=== PATIENT | female | born 1960 | race Caucasian/White ===

== ENCOUNTER 2020-10-21 21:32 | Inpatient (IN) | payer MEDICARE, OTHER ==
[~2020-10-21] VITALS: Ht 177.8 cm; Wt 117.9 kg
--- NOTE | 2020-10-21 21:50 | NUR ---
AERIAL ERECTORRESEARCH SCIENTIST NOTES RECEIVED REPORT FROM CAYLA RN AND MAURA RN. MAURA STATED SHE ADMINISTERED LOVENOX AND ZYPREXA PATIENT ADMITTED FROM [facility] TO TELE 3W 329-1 VIA [facility] WITH 2 EMT. DX: AMS SECONDARY TO ACUTE ENCEPHALOPATHY. PATIENT A/OX1-2; NONVERBAL. ON ROOM AIR AND TOLERATING WELL. HAS BRUISED ON BUE, AND REDNESS ON ABDOMINAL FOLDS. ON NPO DIET FOR ASPIRATION PRECAUTIONS / FAILED SWALLOW EVAL. MIDLINE #20 ON GATO WAS PULLED OUT BY PATIENT. IV #20 ON L HAND PATENT AND INTACT. ENDARTERECTOMY TO BE DONE BY DR. BRADY. SAFETY MEASURES IN PLACE; BED IS LOWEST LOCKED POSITION, SIDE RAILS UP X2, CALL LIGHT WITHIN REACH, BED ALARM ON. VS: BP 119/71, P 97, RR 20 T 97.9F, O2SAT 97% ON ROOM AIR. WILL CONTINUE TO MONITOR.
--- NOTE | 2020-10-21 22:30 | NUR ---
AUTO BODY DETAILER NOTES NOTIFIED DR. DE LA ROSA FOR ADMISSION. ORDERED FOR MIDLINE INSERTION; ORDERS CARRIED OUT.
[2020-10-21] MEDS ORDERED: Z GUARD REMEDY 2 OZ OINT TP PRN (23:30)
[2020-10-21] MEDS ORDERED: ONDANSETRON HCL/PF 4 MG/2 ML VIAL IVP PRN (23:30)
[2020-10-21] MEDS ORDERED: HYDROCODONE/APAP 5/325MG TABLET PO PRN (23:30)
[2020-10-21] MEDS ORDERED: ZOLPIDEM TARTRATE 5 MG TABLET PO PRN (23:30)
[2020-10-21] MEDS ORDERED: MAG HYDROX/AL HYDROX/SIMETH 30 ML UDC PO PRN (23:30)
[2020-10-21] MEDS ORDERED: MAGNESIUM HYDROXIDE 30 ML UDC PO PRN (23:30)
[2020-10-21] MEDS ORDERED: ACETAMINOPHEN 325 MG TABLET PO PRN (23:30)
[2020-10-22] VITALS (10 sets, daily range): BP systolic 103–146; BP diastolic 66–93
--- NOTE | 2020-10-22 01:50 | NUR ---
BELL HOLE DIGGER NOTES PATIENT HAS HX OF DM AND IS NPO. DR. DE LA ROSA ORDERED FOR INSULIN MILD SLIDING SCALE. ORDERS CARRIED OUT.
[2020-10-22] MEDS ORDERED: DEXTROSE 50%-WATER 50 ML DISP.SYRIN IV PRN (02:00)
[2020-10-22] MEDS: BLOOD SUGAR DIAGNOSTIC 1 EACH STRIP IN SCH ×3 (05:53→18:59)
[2020-10-22] MEDS: INSULIN REGULAR, HUMAN 100 UNIT/ML 3 ML VIAL SQ PRN (06:19)
--- NOTE | 2020-10-22 07:30 | NUR ---
PATIENT RECEIVED RESTING COMFORTABLY IN BED. NO S/S OR C/O PAIN OR DISTRESS NOTED. SIDE RAILS UP X2, CALL LIGHT LEFT WITHIN REACH,. WILL CONTINUE PLAN OF CARE.
--- NOTE | 2020-10-22 08:05 | NUR ---
DEVELOPMENTAL SPECIALIST CLOSING NOTES PATIENT A/OX1; NONVERBAL. ON ROOM AIR AND TOLERATING WELL. HAS BRUISED ON BUE, AND REDNESS ON ABDOMINAL FOLDS; PICTURES TAKED AND IN CHARTS. EXTERNAL TELE READS SR AND HR AT 80'S. MAINTAINED ON NPO DIET FOR ASPIRATION PRECAUTIONS / FAILED SWALLOW EVAL. IV #20 ON L HAND PATENT AND INTACT. ALL BELONGINGS ACCOUNTED FOR AND FORMS WERE SIGNED BY PATIENT. SAFETY MEASURES IN PLACE; BED IS LOWEST LOCKED POSITION, SIDE RAILS UP X2, CALL LIGHT WITHIN REACH, BED ALARM ON. ENDORSED TIM TO ONCOMING NURSE.
[2020-10-22 08:09] LABS: BASOPHILS % (AUTO) 0.3 % (0.0-2.0); EOSINOPHILS % (AUTO) 2.3 % (0.0-6.0); HEMATOCRIT 41 % (33-45); HEMOGLOBIN 13.7 g/dL (11.5-14.8); LYMPHOCYTES % (AUTO) 26.8 % (20.0-44.0); MEAN CORPUSCULAR HGB CONC 33 g/dl (31.0-36.0); MEAN CORPUSCULAR VOLUME 84 fL (82-100); MONOCYTES % (AUTO) 9.3 % (2.0-12.0); NEUTROPHILS % (AUTO) 61.3 % (43.0-81.0); PLATELET COUNT (AUTO) 190 /CMM (150-450); RED BLOOD CELL COUNT(AUTO) 4.92 MIL/uL (4.0-5.2); WHITE BLOOD COUNT (AUTO) 7.4 K/uL (4.3-11.0)
[2020-10-22 08:10] LABS: MONOCYTES # (AUTO) 0.7 /CMM (0.1-1.30); NEUTROPHILS # (AUTO) 4.5 /CMM (1.8-8.9)
[2020-10-22] MEDS ORDERED: ENOX40DI SQ (08:12)
[2020-10-22] MEDS ORDERED: ASPI300S RC (08:12)
[2020-10-22] MEDS ORDERED: INSU100V3 SQ (08:12)
[2020-10-22] MEDS ORDERED: BLOO-668 IN (08:12)
[2020-10-22] MEDS ORDERED: RING500I4 IV (08:12)
[2020-10-22] MEDS ORDERED: ACET-868 PO (08:12)
[2020-10-22] MEDS ORDERED: ATOR40TA PO (08:12)
[2020-10-22] MEDS ORDERED: OLAN10VI IM (08:12)
[2020-10-22 09:53] LABS: CALCIUM, SERUM 8.6 mg/dL (8.5-10.1); CREATININE 0.7 mg/dL (0.6-1.3); MAGNESIUM 1.3 mg/dL (1.8-2.4); PHOSPHORUS 2.7 mg/dL (2.5-4.9)
[2020-10-22] MEDS ORDERED: OLANZAPINE 10 MG VIAL IM SCH (11:00)
[2020-10-22] MEDS ORDERED: ACETAMINOPHEN 325 MG TABLET PO PRN (11:00)
[2020-10-22] MEDS ORDERED: BLOOD SUGAR DIAGNOSTIC 1 EACH STRIP IN SCH (12:00)
--- NOTE | 2020-10-22 12:00 | NUR ---
MED HELD INSULIN RE NPO STATUS
[2020-10-22] MEDS ORDERED: GENTAMICIN 80 MG/2 ML VIAL ONE (12:22)
[2020-10-22] MEDS ORDERED: LIDOCAINE 1% INJ 50 ML MDV IJ ONE (12:23)
[2020-10-22] MEDS ORDERED: THROMBIN (BOVINE) 5,000 UNITS VIAL TP ONE (12:23)
[2020-10-22] MEDS ORDERED: HEPARIN SODIUM, PORCINE 5000 UNITS/1 ML VIAL ONE ×2 (12:23→12:46)
[2020-10-22] MEDS ORDERED: BUPIVACAINE 0.5 % PF 150 MG/30 ML VIAL ONE (12:23)
[2020-10-22] MEDS ORDERED: GELATIN SPONGE,ABSORBABLE 1 EA SPONGE TP ONE (12:25)
[2020-10-22] MEDS ORDERED: HEPARIN SODIUM, PORCINE 1,000 UNIT/ML VIAL ONE (12:25)
[2020-10-22] MEDS: Magnesium 1GM/D5W 100ML PREMIX 100 ML IV SCH ×5 (12:44→22:35)
[2020-10-22] MEDS ORDERED: protAMINE SULFATE 10 MG/ML VIAL IV ONE (12:44)
[2020-10-22] MEDS ORDERED: ZOLPIDEM TARTRATE 5 MG TABLET PO PRN (13:00)
[2020-10-22] MEDS ORDERED: MIDAZOLAM HCL 2 MG/2ML VIAL ONE (13:02)
[2020-10-22] MEDS ORDERED: FENTANYL PF 250MCG/5ML AMPUL ONE (13:02)
[2020-10-22] MEDS ORDERED: ROCURONIUM BROMIDE 50 MG/5 ML ONE (13:03)
[2020-10-22] MEDS ORDERED: FAMOTIDINE/PF INJ 20 MG/2 ML VIAL IV ONE (13:03)
--- NOTE | 2020-10-22 13:30 | NUR ---
PT TRANSFERRED TO SURGERY
[2020-10-22] MEDS ORDERED: CLINDAMYCIN 900 MG/6 ML VIAL ONE (14:12)
[2020-10-22] MEDS ORDERED: ASPIRIN 325 MG TABLET PO ONE (15:00)
[2020-10-22] MEDS ORDERED: CELLULOSE,OXIDIZED 1 EA PACK MC ONE (16:47)
[2020-10-22] MEDS ORDERED: CELLULOSE,OXIDIZED 1 EACH EACH MC ONE (16:48)
--- NOTE | 2020-10-22 17:00 | NUR ---
REPORT CALLED TO CINTIA ARROYO
[2020-10-22] MEDS ORDERED: CLONIDINE HCL 0.1 MG TABLET PO PRN (19:00)
[2020-10-22] MEDS ORDERED: NICARDIPINE IN NACL, ISO-OSM 200 ML IV PRN (19:00)
--- NOTE | 2020-10-22 19:00 | NUR ---
RN INITIAL NOTES RECEIVED PT FROM OR, SP RIGHT CAROTID ENDARTERECTOMY. NO SIGNS OF BLEEDING ON RIGHT NECK NOTED. IE PACK IN PLACE. PT A/OX2, FARSI SPEAKING. ON 0S VIA NC AT 2LPM. GATO MIDLINE IN PLACE. PIERRE IN PLACE. ORDERS FROM OR NOTED AND CARRIED OUT. MALINI DO NEUROCHECK Q4. WILL CLOSELY MONITOR
[2020-10-22] MEDS: IV 1/2NS 1000 ML 1,000 ML IV PRN (19:22)
[2020-10-22] MEDS: POTASSIUM CL. PREMIX PERIPHER. 50 ML IV SCH ×4 (19:23→22:35)
[2020-10-22 20:50] LABS: BASOPHILS % (AUTO) 0.1 % (0.0-2.0); HEMATOCRIT 43 % (33-45); HEMOGLOBIN 13.9 g/dL (11.5-14.8); LYMPHOCYTES # (AUTO) 0.5 /CMM (0.8-4.8); LYMPHOCYTES % (AUTO) 5.8 % (20.0-44.0); MEAN CORPUSCULAR HGB CONC 33 g/dl (31.0-36.0); MEAN CORPUSCULAR VOLUME 84 fL (82-100); MONOCYTES # (AUTO) 0.2 /CMM (0.1-1.30); MONOCYTES % (AUTO) 1.9 % (2.0-12.0); NEUTROPHILS # (AUTO) 8.1 /CMM (1.8-8.9); NEUTROPHILS % (AUTO) 92.2 % (43.0-81.0); PLATELET COUNT (AUTO) 189 /CMM (150-450); RED BLOOD CELL COUNT(AUTO) 5.04 MIL/uL (4.0-5.2); WHITE BLOOD COUNT (AUTO) 8.8 K/uL (4.3-11.0)
[2020-10-22 20:55] LABS: CALCIUM, SERUM 8.1 mg/dL (8.5-10.1); CREATININE 0.7 mg/dL (0.6-1.3); MAGNESIUM 1.6 mg/dL (1.8-2.4); POTASSIUM 3.3 mmol/L (3.5-5.1)
[2020-10-22] MEDS ORDERED: ENOXAPARIN SODIUM 40 MG/0.4 ML DISP.SYRIN SQ SCH (21:00)
[2020-10-22] MEDS: ATORVASTATIN 40 MG TABLET PO SCH (21:28)
[2020-10-22] MEDS: DEXAMETHASONE SOD PHOSPHATE 4 MG/ML VIAL IV SCH (21:28)
--- NOTE | 2020-10-22 22:00 | NUR ---
ONCOLOGY SOCIAL WORK NON ADMIN PO MEDS PT IS DROWSY; ATTEMPTED TO GIVE WATER BUT PT FELL ASLEEP.
--- NOTE | 2020-10-22 22:00 | NUR ---
DYE MACHINE TENDER PT MORE AWAKE ABLE TO HAVE ICE CHIPS.
--- NOTE | 2020-10-22 23:11 | NUR ---
SUB PLANT MANAGER REPORT GIVEN TO GLORIA RAMIREZ TIM.
--- NOTE | 2020-10-22 23:20 | NUR ---
RECEIVED PATIENT FROM ICU IN STABLE CONDITION. A/O X2, ON ROOM AIR O2 SAT 97%. WITH J TO BULB SUCTION DRESSING INTACT AND PATENT WITH SANGUINEOUS DRAINAGE. NO S/S OF ANY DISCOMFORT. WILL CONTINUE TO MONITOR.
[2020-10-22] MEDS: CLINDAMYCIN 900 MG in IV D5W 50 ML IV SCH (23:41)
[2020-10-23] VITALS (18 sets, daily range): BP systolic 110–156; BP diastolic 53–93
[2020-10-23] MEDS: POTASSIUM CL. PREMIX PERIPHER. 50 ML IV SCH ×2 (00:13→02:23)
[2020-10-23] MEDS: BLOOD SUGAR DIAGNOSTIC 1 EACH STRIP IN SCH ×4 (00:34→17:24)
[2020-10-23] MEDS: INSULIN REGULAR, HUMAN 100 UNIT/ML 3 ML VIAL SQ PRN ×4 (00:46→17:28)
[2020-10-23] MEDS: DEXAMETHASONE SOD PHOSPHATE 4 MG/ML VIAL IV SCH (03:32)
[2020-10-23] MEDS: CLINDAMYCIN 900 MG in IV D5W 50 ML IV SCH (06:10)
[2020-10-23 06:43] LABS: HEMATOCRIT 42 % (33-45); HEMOGLOBIN 13.9 g/dL (11.5-14.8); LYMPHOCYTES # (AUTO) 0.6 /CMM (0.8-4.8); LYMPHOCYTES % (AUTO) 6.9 % (20.0-44.0); MEAN CORPUSCULAR HGB CONC 33 g/dl (31.0-36.0); MEAN CORPUSCULAR VOLUME 84 fL (82-100); MONOCYTES # (AUTO) 0.1 /CMM (0.1-1.30); MONOCYTES % (AUTO) 1.6 % (2.0-12.0); NEUTROPHILS # (AUTO) 8.4 /CMM (1.8-8.9); NEUTROPHILS % (AUTO) 91.5 % (43.0-81.0); PLATELET COUNT (AUTO) 218 /CMM (150-450); RED BLOOD CELL COUNT(AUTO) 4.95 MIL/uL (4.0-5.2); WHITE BLOOD COUNT (AUTO) 9.2 K/uL (4.3-11.0)
[2020-10-23 07:35] LABS: CALCIUM, SERUM 8.4 mg/dL (8.5-10.1); CREATININE 0.6 mg/dL (0.6-1.3); MAGNESIUM 2.1 mg/dL (1.8-2.4); PHOSPHORUS 2.9 mg/dL (2.5-4.9); POTASSIUM 4.3 mmol/L (3.5-5.1)
--- NOTE | 2020-10-23 07:38 | NUR ---
RN NOTES PATIENT A/OX2, CAN FOLLOW VERBAL COMMANDS. NO SOB OR ANY RESPIRATORY DISTRESS. ON ROOM AIR, O2 SAT 97%. DENIES ANY PAIN OR DISCOMFORT. TELE MONITOR ON, SR. WITH PIERRE CATH DRAINING YELLOW URINE TO GRAVITY. WITH GATO MIDLINE WITH 1/2 NS @ 75ML/HR INFUSING WELL. J TO BULB SUCTION PATENT AND INTACT WITH 25 ML OUTPUT SANGUINEOUS DRAINAGE. BED LOCKED AND IN LOWEST POSITION, SR UP X2. SAFETY MEASURES IN PLACE. CALL LIGHT WITHIN REACH. ENDORSED TO NEXT SHIFT.
--- NOTE | 2020-10-23 08:00 | NUR ---
PT RECEIVED IN BED AWAKE AND ALERT/ORIENTED X2 FARSI SPEAKING. SPEECH IS UNCLEAR. PT ON MONITOR SHOWING SR. PT CURRENTLY NPO TO HAVE ST EVAL TODAY. PT HAS PIERRE TO BE DC PER DR BRADY THIS AM. PT HAS RIGHT JOCE BULB REMOVING 25 ML LAST SHIFT. ALL SAFETY MEASURES IN PLACE. WILL CONTINUE TO MONITOR
[2020-10-23] MEDS: ASPIRIN EC 325 MG TABLET.DR PO SCH ×2 (09:00→10:42)
[2020-10-23] MEDS: ENOXAPARIN SODIUM 40 MG/0.4 ML DISP.SYRIN SQ SCH ×2 (09:29→21:52)
--- NOTE | 2020-10-23 10:03 | NUR ---
PT PO 0900 ECOTRIN NON-ADMIN. BEDSIDE SWALLOW EVAL ATTEMPTED: PT ABLE TO SWALLOW WATER AND ICE CHIPS, BUT COUGHED UP WATER, WILL HOLD MED UNTIL ST EVAL TODAY
--- NOTE | 2020-10-23 12:00 | NUR ---
PT PASSED SWALLOW EVAL, OK FOR PT TO CONSUME PUREED DIET WITH HONEY THICKENED LIQUID
[2020-10-23] MEDS: IV 1/2NS 1000 ML 1,000 ML IV PRN (12:15)
--- NOTE | 2020-10-23 18:00 | NUR ---
MD PETAR PRESCOTT DOWNGRADING PT FROM ICU OVERFLOW TO TELE STATUS.
--- NOTE | 2020-10-23 20:00 | NUR ---
STERILIZER MACHINE OPERATOR NOTES RECEIVED PATIENT IN BED AWAKE A/O X3, ON ROOM AIR O2 SAT 97%. WITH J TO BULB SUCTION DRESSING INTACT AND PATENT WITH SANGUINEOUS DRAINAGE. NO SOB NO DISTRESS NOTED NO S/S OF ANY DISCOMFORT. WILL CONTINUE TO MONITOR.V/S STABLE AFEBRILE.ALL DUE MEDS GIVEN ORDERED ,ALL NEEDS ATTENDED TOO CALL LIGHT WITHIN REACH ,WITH IVF OF 1/2 NS AT 75CC/HR INFUSING WELL. Addendum: 10/24/20 at 0657 by ADRIANNE BARRIOS RN CORRECTION; RECEIVED PATIENT WITH NO JOCE BULB.
[2020-10-23] MEDS: ATORVASTATIN 40 MG TABLET PO SCH (21:52)
[2020-10-24] VITALS: BP 133/69
--- NOTE | 2020-10-24 | NUR ---
CASE MGR NOTES BLOOD SUGAR AT 12MN IS 276 MMOL 6 UNITS OF REGULAR INSULIN GIVEN PER SLIDING SCALE , WILL CHECK BS AGAIN AT 6AM.
[2020-10-24] MEDS: INSULIN REGULAR, HUMAN 100 UNIT/ML 3 ML VIAL SQ PRN ×4 (00:51→17:41)
[2020-10-24] MEDS: BLOOD SUGAR DIAGNOSTIC 1 EACH STRIP IN SCH ×4 (00:56→17:41)
[2020-10-24] MEDS: IV 1/2NS 1000 ML 1,000 ML IV PRN (00:57)
[2020-10-24 04:00] VITALS: BP 145/90
--- NOTE | 2020-10-24 06:30 | NUR ---
telephone services sales representative notes RN CLOSING NOTE: PATIENT REMAINS IN ROOM IN NO SIGNS OF RESPIRATORY DISTRESS. SAFETY MEASURES IMPLEMENTED, BED IN LOWEST POSITION, LOCKED, SIDE RAILS UP, CALL LIGHT WITHIN REACH. ALL NEEDS AND ORDERS ADDRESSED DURING THE SHIFT. IV ACCESS MAINTAINED INTACT, SECURED AND FLUSHING WELL. ALL DUE MEDS GIVEN ORDERED & SCHEDULED ; PATIENT TOLERATED WELL. PATIENT KEPT CLEAN AND COMFORTABLE WITHIN THE SHIFT. PATIENT ENDORSED TO INCOMING SHIFT RN WITH STABLE VITAL SIGN AND FOR CONTINUITY OF CARE.
[2020-10-24 08:00] VITALS: BP 112/62
[2020-10-24] MEDS: ASPIRIN EC 325 MG TABLET.DR PO SCH (09:26)
[2020-10-24] MEDS: ENOXAPARIN SODIUM 40 MG/0.4 ML DISP.SYRIN SQ SCH (09:27)
[2020-10-24] MEDS ORDERED: ONDA4VIA23 IVP (13:41)
[2020-10-24] MEDS ORDERED: CLON0.1T14 PO (13:41)
[2020-10-24] MEDS ORDERED: HYDR-3972 PO (13:41)
[2020-10-24] MEDS ORDERED: INSU100V28 SQ (13:41)
[2020-10-24] MEDS ORDERED: ZOLP5TAB2 PO (13:41)
[2020-10-24] MEDS ORDERED: ASPI-1169 PO (13:41)
[2020-10-24] MEDS ORDERED: CLOP75TA15 PO (13:41)
--- NOTE | 2020-10-24 14:51 | NUR ---
RN NOTES DISCHARGE TEACHING PROVIDED TO PATIENT AND PATIENTS SISTER. INFORMED PATIENT AND THE SISTER OF THE DISCHARGE.
--- NOTE | 2020-10-24 15:29 | NUR ---
RPG DEVELOPER NOTES REPORT GIVEN TO CHENTE ARROYO AT [facility], [place]. PATIENT WILL BE PICKED UP AT 1830.
[2020-10-24 16:00] VITALS: BP 111/65
--- NOTE | 2020-10-24 18:47 | NUR ---
ROPEMAN NOTES PATIENT IN BED RESTING NO SOB OR ACUTE DISTRESS NOTED. PATIENT WITH INTACT SURGICAL DRESSING ON RIGHT NECK. NO SIGNS OF BLEEDING. PATIENT WAITING FOR DISCHARGE TO [facility]. ALL DUE MEDICATIONS ADMINISTERED. ALL NEEDS MET. DISCHARGE TEACHING PROVIDED TO PATIENT AND PATIENTS SISTER OVER THE PHONE. REPORT GIVEN TO RN AT ARU. PATIENT IN STABLE CONDITION. WAITING FOR TRANSFORATION. PATIENT REFUSED ALL DISCHARGE PICTURES.
--- NOTE | 2020-10-24 19:00 | NUR ---
RN NOTE RECEIVED PATIENT IN BED, AO X 3-4, FARSI SPEAKING ONLY, IN NO S/SX OF ACUTE DISTRESS AT THIS TIME. NO SOB NOTED. PATIENT'S BREATHING IS EVEN AND UNLABORED, SATURATION >95% ON ROOM AIR. NOTED GATO MIDLINE, PATENT AND FLUSHING WELL, NO S/S OF INFECTION. PATIENT TO BE TRANSFERRED TO [facility], AWAITING EMT TO HANDKERCHIEF PRESSER. SAFETY MEASURES IMPLEMENTED. PATIENT BED ALARM IS ON. HEAD OF BED ELEVATED. BED IS LOCKED, IN LOWEST POSITION AND SIDE RAILS UP. CALL LIGHT WITHIN REACH OF THE PATIENT. KEPT COMFORTABLE. WILL CONTINUE TO MONITOR AND REASSESS FOR ANY CHANGES.
--- NOTE | 2020-10-24 19:30 | NUR ---
RN NOTE EMT ARRIVED AT 1915. PATIENT [facility] BE TRAN[facility] TO [facility] WITH STABLE VITAL SIGNS BP 127/66, HR 93, T 97.4, O2 SAT 95%, ALERT ORIENTED X 3, FARSI SPEAKING, UNDERSTANDS SIMPLE UZBEK, NO ACUTE DISTRESS NOTED UPON DISCHARGE, BREATHING UNLABORED SATURATING AT 95% ON RA. REPORT GIVEN TO GLORIA AT [facility] BY JAYLA ARROYO. REPORT RELAYED TO EMT SUJEY CHANG. ALL BELONGINGS ACCOUNTED FOR INCLUDING CELLPHONE, NECKLACE AND KEYS. GATO MIDLINE KEPT INSERTED FOR REMIANING IV MEDS. NO REDNESS, NO BLEEDING, NO SWELLING NOTED. PICKED UP VIA AMBULANCE IN A GURNEY ACCOMPANIED BY 2 EMT PERSONNEL IN STABLE CONDITION.
== END 2020-10-24 19:30 | DRG 38 ==
LOC: TELE 21:32 → ICU 10-22 14:31 → TELE1 10-22 23:12 → ICUOV 10-23 00:09 → TELE1 10-23 18:07
PROVIDERS: ADMIT Registered Nurse; ATTEND Registered Nurse
PROC: 03CK0ZZ Extirpation of Matter from Right Internal Carotid Artery, Open Approach (ICD-10-PCS; principal; 2020-10-22)
PROC: 03UK0JZ Supplement Right Internal Carotid Artery with Synthetic Substitute, Open Approach (ICD-10-PCS; 2020-10-22)
PROC: 05HY33Z Insertion of Infusion Device into Upper Vein, Percutaneous Approach (ICD-10-PCS; 2020-10-23)
DX: I63.231 Cerebral infarction due to unspecified occlusion or stenosis of right carotid arteries (principal); G93.49 Other encephalopathy; E87.1 Hypo-osmolality and hyponatremia; I10 Essential (primary) hypertension; E11.9 Type 2 diabetes mellitus without complications; F20.9 Schizophrenia, unspecified; E11.65 Type 2 diabetes mellitus with hyperglycemia; Z68.37 Body mass index [BMI] 37.0-37.9, adult; E66.9 Obesity, unspecified; E87.6 Hypokalemia; E83.42 Hypomagnesemia; R13.10 Dysphagia, unspecified; Z86.73 Personal history of transient ischemic attack (TIA), and cerebral infarction without residual deficits; Z79.82 Long term (current) use of aspirin; Z79.4 Long term (current) use of insulin; Z79.02 Long term (current) use of antithrombotics/antiplatelets; Z79.899 Other long term (current) drug therapy; F29 Unspecified psychosis not due to a substance or known physiological condition
CPT/HCPCS: 36415; 80048-TC; 80061-TC; 82962-TC; 83735-TC; 84100-TC; 85025-TC; 86850-TC; 87081-TC; 88304-TC; 88311-TC; 92526; 92611-TC; 97116-TC; 97530-TC; A6209; C1751; C1768; C1769; G0378; J1100; J1580; J1644; J1650; J1815; J2250; J2405; J2704; J2720; J2765; J3010; J3475; J3480; J3490; J7030; J7060